=== PATIENT | female | born 1935 | race Caucasian/White ===

== ENCOUNTER 2018-07-26 11:20 | Outpatient (CLI) | payer OTHER ==
[2018-07-26] VITALS (21 sets, daily range): BP systolic 88–143; BP diastolic 35–100
[~2018-07-26 11:20] MED LIST: MULT-1179 PO; PANT40TA4 PO; ROSU10TA27 PO
== END 2018-07-26 23:59 | disposition home or self-care (01) ==
LOC: CARD DIAG 11:20
PROVIDERS: ATTEND Internal Medicine Cardiovascular Disease
DX: R42 Dizziness and giddiness (principal); Z87.891 Personal history of nicotine dependence; Z90.710 Acquired absence of both cervix and uterus
CPT/HCPCS: 93660

== ENCOUNTER 2022-05-05 12:37 | Emergency (ER) | payer OTHER ==
[~2022-05-05] VITALS: Ht 162.6 cm; Wt 56.8 kg
[~2022-05-05 12:37] MED LIST changes: -MULT-1179 PO; +MULT-25 PO; -PANT40TA4 PO; +PANT40TA54 PO; -ROSU10TA27 PO; +ROSU10TA28 PO
[2022-05-05 13:39] LABS: BASOPHILS # (AUTO) 0.1 X10'3 (0-0.2); BASOPHILS % (AUTO) 0.6 % (0-1); EOSINOPHILS # (AUTO) 0.1 X10'3 (0-0.9); EOSINOPHILS % (AUTO) 1.2 % (0-6); HEMATOCRIT 40.6 % (35.0-45.0); HEMOGLOBIN 13.7 g/dl (12.0-16.0); LYMPHOCYTES # (AUTO) 1.3 X10'3 (1.1-4.8); LYMPHOCYTES % (AUTO) 14.6 % (21-51); MEAN CORPUSCULAR HEMOGLOBIN 31.1 PG (27.0-31.0); MEAN CORPUSCULAR HGB CONC 33.8 g/dL (33.0-36.5); MEAN CORPUSCULAR VOLUME 92.1 FL (78-98); MEAN PLATELET VOLUME 7.3 FL (7.4-10.4); MONOCYTES # (AUTO) 0.9 X10'3 (0-0.9); MONOCYTES % (AUTO) 10.1 % (2-12); NEUTROPHILS # (AUTO) 6.3 X10'3 (1.8-7.7); NEUTROPHILS % (AUTO) 73.5 % (42-75); PLATELET COUNT 319 X10'3 (140-440); RED BLOOD COUNT 4.41 X10'6 (4.20-5.60); RED CELL DISTRIBUTION WIDTH 14.2 % (11.5-14.5); WHITE BLOOD COUNT 8.6 X10'3 (4.5-11.0)
[2022-05-05 13:50] LABS: ALANINE AMINOTRANSFERASE 13 U/L (12-78); ALBUMIN 3.3 G/DL (3.4-5.0); ALBUMIN/GLOBULIN RATIO 0.9 (1.1-1.5); ALKALINE PHOSPHATASE 75 IU/L (46-116); ANION GAP 7 (8-16); ASPARTATE AMINO TRANSFERASE 18 U/L (10-37); BILIRUBIN,TOTAL 0.9 MG/DL (0.1-1.0); BLOOD UREA NITROGEN 14 MG/DL (7-18); BUN/CREATININE RATIO 25.9 (6.6-38.0); CALCIUM 9.3 MG/DL (8.5-10.1); CHLORIDE 103 MMOL/L (99-107); CREATININE 0.54 MG/DL (0.40-0.90); GLUCOSE 103 MG/DL (70-104); SODIUM 136 MMOL/L (135-145); TOTAL CARBON DIOXIDE 26.1 MMOL/L (24-32); TOTAL PROTEIN 6.9 G/DL (6.4-8.2); eGFR > 90 ML/MIN
[2022-05-05 13:59] LABS: POTASSIUM 4.3 MMOL/L (3.5-5.1)
[2022-05-05] MEDS ORDERED: nitroGLYCERIN 1gm ointment UD TP ONE (14:25)
[2022-05-05] MEDS ORDERED: furosemide 10 MG/1 ML 10ml inj IV ONE (14:25)
[2022-05-05] MEDS ORDERED: BUSP5TAB3 PO (16:06)
[2022-05-05] MEDS ORDERED: CARV3.123 PO (16:06)
[2022-05-05 16:11] VITALS: BP 177/92
[2022-05-05] MEDS ORDERED: LIDO700A32 TOP (16:18)
[2022-05-05] MEDS ORDERED: TRAM50TA2 PO (16:18)
== END 2022-05-05 16:58 | disposition home or self-care (01) ==
LOC: ER 12:38
DX: S22.42XA Multiple fractures of ribs, left side, initial encounter for closed fracture (principal); J90 Pleural effusion, not elsewhere classified; I10 Essential (primary) hypertension; X58.XXXA Exposure to other specified factors, initial encounter; Y93.89 Activity, other specified; Y92.89 Other specified places as the place of occurrence of the external cause; Y99.8 Other external cause status
CPT/HCPCS: 36415; 71045; 71250; 74176; 80053; 83880; 84484; 85025; 93005; 96374; 99285; J1940